=== PATIENT | male | born 1995 | race Caucasian/White ===

== ENCOUNTER 2024-05-29 05:45 | Emergency (ER) | payer OTHER, SELFPAY ==
--- OUTSIDE RECORDS SUMMARY | 2024-05-29 05:47 | XMS_ITS | Clinical Summary ---
Author Organization [facility] Address [address] [place] [address] Care Team Providers Care Block Mechanic Name Role Phone Unavailable Primary Care Provider Unavailabl e Source Comments [facility],non-owned Affiliates and Associated Physician Practices is amultiple site organization consisting of ambulatory clinics and hospital sitesin [place], [place], [place] and [place]. This disclosure is being madepursuant to the Care Everywhere program and may not contain all information available regarding this patient. Last updated 17.Mess[employer] Allergies No known active allergies Medications Be aware that medications may not be up to date on this document. Always verify current medications with the patient. No known medications Active Problems No known active problems Social History Tobacco Use Types Packs/Day Years Used Date Smoking Tobacco: Never Smokeless Tobacco: Never Sex and Gender Information Value Date Recorded Sex Assigned at Not on file Gender Identity Not on file Sexual Orientation Not on file Last Filed Vital Signs Vital Sign Reading Time Taken Comments Blood Pressure 120/80 08/19/2016 12:36 PM CDT Pulse 74 08/19/2016 12:36 PM CDT Temperature 36.7 C (98 F) 08/19/2016 12:36 PM CDT Respiratory Rate 16 08/19/2016 12:36 PM CDT Oxygen Saturation 97% 08/19/2016 12:36 PM CDT Inhaled Oxygen Concentration - - Weight 83.9 kg (185 lb) 08/19/2016 12:36 PM CDT Height 195.6 cm (6' 5 ) 08/19/2016 12:36 PM CDT Body Mass Index 21.94 08/19/2016 12:36 PM CDT Plan of Treatment Health Maintenance Due Date Last Done Comments HIV SCREENING 2009 HEPATITIS C SCREENING 02/27/2012 DTAP/TDAP/TD VACCINES (1 - Tdap) 2013 HEPATITIS B VACCINE (1 of 3 - 19+ 3-dose series) 2013 COVID-19 VACCINE (1 - 2023-2 5 season) 2023 INFLUENZA VACCINE (#1) 2023 DEPRESSION SCREENING 03/06/2024 ZOSTER VACCINE (1 of 2) 2044 HIB VACCINE Aged Out No longer eligi ble based on patient's age to complete this topic HPV VACCINE Aged Out No longer eligi ble based on patient's age to complete this topic MENINGOCOCCAL (Group B) VACC INE SHARED DECISION-MAKING Aged Out No longer eligibl e based on patient's age to complete this topic MENINGOCOCCAL GROUPS A/C/Y/W VACCINE Aged Out No longer eligible b ased on patient's age to complete this topic PNEUMOCOCCAL VACCINE Aged Out No long er eligible based on patient's age to complete this topic
--- OUTSIDE RECORDS SUMMARY | 2024-05-29 05:47 | XMS_ITS | Clinical Summary ---
Author Organization [facility] Address [address] [place] [id number] Care Team Providers Care Energy Systems Laboratory Director Name Role Phone Sha Castaneda MD Primary Care Provider Unava ilable Social History Tobacco Use Types Packs/Day Years Used Date Smoking Tobacco: Never Assessed Sex and Gender Information Value Date Recorded Sex Assigned at Not on file Legal Sex Male 6:57 PM CDT Gender Identity Not on file Sexual Orientation Not on file Plan of Treatment Health Maintenance Due Date Last Done Comments Annual Physical 1997 Hepatitis C 2012 DTaP, Tdap and Td Vaccines ( 1 - Tdap) 2013 Hepatitis B Vaccines (1 of 3 - 19+ 3-dose series) 2013 COVID-19 Vaccine ( - 2023-2 5 season) 2023 Influenza Adult (#1) 2023 HPV Vaccines Aged Out No longer eligi ble based on patient's age to complete this topic Meningococcal B Vaccine Aged Out No l onger eligible based on patient's age to complete this topic Meningococcal Vaccine Aged Out No federico rene eligible based on patient's age to complete this topic Pneumococcal Vaccine: Pediat rics (0 to 5 Years) and At-Risk Patients (6 to 64 Years) Aged Out No longer eligible b ased on patient's age to complete this topic RSV Immunizations Under 20 Months Aged Out No longer eligible based on patient's age to complete this topic Care Teams Energy Systems Laboratory Director Relationship Specialty Start Date End Date Sha Castaneda MD PCP - General 05/12/15
[2024-05-29 05:50] VITALS: BP 135/86; PULSE 73; RESP 16; TEMP 36.4; O2SAT 100
--- NOTE | 2024-05-29 05:54 | ED.SKABFB ---
HPI - Skin/Abscess/Foreign Bdy General Chief complaint: Skin/Abscess/Foreign Body Stated complaint: Cyst on head getting inflamed Time Seen by Provider: 05/29/24 05:54 Source: patient Mode of arrival: ambulatory Limitations: no limitations History of Present Illness HPI narrative: Patient presents with concern for a cyst on his forehead that he is concerned is inflamed. Has been present for approximately 1 year but recently noted to grow in size and become more red and painful/tender. He did go to urgent care ([facility]) and was diagnosed with a follicular cyst and prescribed cephalexin and mupirocin. He got a referral to [facility] but has not yet called for an appointment. He did try draining himself a few days ago but it only bled a little he is concerned he was too superficial with his attempt. He does not have a primary care physician. He has noted it has been a bit painful. Denies any fevers or chills. Related Data Allergies Allergy/AdvReac Type Severity Reaction Status Date / Time No Known Allergies Allergy Verified 06/26/18 15:10 Exam Narrative: GENERAL: Well-appearing, well-nourished, and in no acute distress. HEAD: Atraumatic. EYES: Non injected, non icteric. No ocular involvement or periorbital swelling. ENT: Nares clear, no rhinorrhea or epistaxis. NECK: Supple. CHEST: Speaking in full sentences. No respiratory distress. HEART: Regular rate and rhythm. . ABDOMEN: Soft, nondistended. EXTREMITIES: Normal range of motion. No lower extremity edema. SKIN: Warm, dry. Approximately 2cm diameter raised lesion at right superior most aspect of forehead. Is erythematous and mildly tender to palpation but otherwise mobile, not fixed. Slight surrounding swelling but without erythema of rest of forehead. NEURO: No focal deficits. Alert and oriented x3. PSYCH: Normal mood and affect. Course Vital Signs Vital signs: Vital Signs Temperature 97.6 F 05/29/24 05:50 Pulse Rate 73 05/29/24 05:50 Respiratory Rate 16 05/29/24 05:50 Blood Pressure 135/86 05/29/24 05:50 Pulse Oximetry 100 05/29/24 05:50 Oxygen Delivery Room Air 05/29/24 05:50 Temperature 97.6 F 05/29/24 05:50 Pulse Rate 73 03/26/25 05:50 Respiratory Rate 16 05/29/24 05:50 Blood Pressure 135/86 05/29/24 05:50 Pulse Oximetry 100 05/29/24 05:50 Oxygen Delivery Room Air 05/29/24 05:50 Procedures Abscess I/D scalp: Date of Incision: 05/29/24 Time of Incision: 06:45 Side (if applicable): right Sedation/analgesia: none Local Anesthetic: none Technique: incised with #11 blade Amount of fluid expressed (mL): 2 Irrigation: No Packing used?: none I&D Results: Pus (thick, white) and Blood Abcess I&D Additional Comments: forehead No complications; patient tolerated well MDM - Skin/Abscess/Foreign Bdy MDM Narrative Medical decision making narrative: Patient presents with a lesion his right forehead that has been present for approximately 1 year but recently worsening approximately 1 week ago. Seen at urgent care and prescribed cephalexin appears in which he has been taking. In the emergency department they are afebrile with vital signs within normal limits. For care ultrasound performed which does demonstrate a lesion that appears walled off, no obvious septations. Patient declined local anesthesia or regional nerve block. I&D performed as above. Patient tolerated well. Discharged home in stable condition advised to continue using the prescribed medications. Wound culture obtained in in process. Provided referral/contact information for a physician as he does not have a primary care physician. Differential Diagnosis Differential diagnosis: Likely abscess of skin or subcutaneous tissue, cellulitis and other (cyst) Discharge Plan Discharge Clinical Impression: Encounter for incision and drainage procedure, Cyst Patient Disposition: Home, Self-Care Condition: Stable Instructions: Antibiotic Form, Cyst (ED), Abscess Incision and Drainage (DC) Additional Instructions: There was pus discharge from the cyst/abscess on your forehead. It may continue to drain pus or blood. Continue to take the medications prescribed. Follow-up with your primary care physician for a wound check. If you do not have 1 the name of a doctor list listed below. Return to the emergency department with any new or worsening symptoms. Patient Language: Mongolian Follow-up/Referrals: PHYSICIAN NOT ON STAFF,NONSTAFF [Primary Care Provider] - Farshad Rascon MD [Physician] - Stand Alone Forms: Work/School Release IP Time of Disposition: 06:46
--- OUTSIDE RECORDS SUMMARY | 2024-05-29 06:11 | XMS_ITS | Clinical Summary ---
Author Organization [facility] Address [address] [place] [id number] Care Team Providers Care Hybrid Powertrain Development Engineer Name Role Phone Sha Castaneda MD Primary [...] age to complete this topic Care Teams Hybrid Powertrain Development Engineer Relationship Specialty Start Date End Date Sha Castaneda MD PCP - General 05/12/15
--- OUTSIDE RECORDS SUMMARY | 2024-05-29 06:11 | XMS_ITS | Clinical Summary ---
Author Organization [facility] Address [address] [place] [address] Care Team Providers Care Reservoir Engineering Manager Name Role Phone Unavailable Primary Care Provider Unavailabl e Source Comments [facility]non-owned Affiliates and Associated Physician Practices is amultiple site organization consisting of ambulatory clinics and hospital sitesin [place], [place], [place] and [place]. This disclosure is being madepursuant to the Care Everywhere program and may not contain all information available regarding this patient. Last updated 17.[employer] Allergies No known active allergies Medications Be [...]
[2024-05-29 07:14] VITALS: BP 138/87; PULSE 62; RESP 16; O2SAT 99
== END 2024-05-29 07:17 | disposition home or self-care (01) ==
PROVIDERS: Emergency Provider Student in an Organized Health Care Education/Training Program
DX: L72.9 Follicular cyst of the skin and subcutaneous tissue, unspecified (principal)
CPT/HCPCS: 10060; 87070; 87075; 87205; 99283